=== PATIENT | male | born 1970 | race Caucasian/White ===

== ENCOUNTER 2017-10-17 05:21 | Day surgery (SDC) | payer BC ==
[~2017-10-17] VITALS: Ht 175.3 cm; Wt 99.4 kg
[2017-10-17 05:57] VITALS: BP 157/92
[2017-10-17] MEDS ORDERED: NORCO 5/3251 TABLET PO (08:24)
[2017-10-17 09:10] VITALS: BP 120/78
[2017-10-17 10:01] VITALS: BP 120/72
[2017-10-17 12:05] VITALS: BP 122/79
== END 2017-10-17 12:15 | disposition home or self-care (01) ==
LOC: SDC 05:21
PROC: 0DBQXZZ Excision of Anus, External Approach (ICD-10-PCS; principal; 2017-10-17)
PROC: 06BY0ZC Excision of Hemorrhoidal Plexus, Open Approach (ICD-10-PCS; principal; 2017-10-17)
DX: K64.8 Other hemorrhoids (principal); K64.4 Residual hemorrhoidal skin tags; G47.30 Sleep apnea, unspecified
CPT/HCPCS: 88304; J0131; J1100; J1170; J1885; J2250; J2405; J2765; J3010; S0074